=== PATIENT | female | born 1995 | race Hispanic/Latino ===

== ENCOUNTER 2020-10-04 05:06 | Emergency (ER) | payer OTHER, SELFPAY ==
--- OUTSIDE RECORDS SUMMARY | 2020-10-04 05:07 | XMS REPORT | Continuity of Care Document ---
:1995 Author Organization [facility] t Address [address] [place] [address] Dr. Vargas. [address] [place] [address] Care Team Providers Name Role Phone Jesse ARGUETA, Gerson Attending Clinician Problems This patient has no known problems. Allergies, Adverse Reactions, Alerts This patient has no known allergies or adverse reactions. Medications This patient has no known medications. Procedures This patient has no known procedures. Encounters Start End Encounter Admission Attending Care Care Encounter Source Date/Time Date/Time Type Type Clinicians Facility Department ID 2020-08-26 2020-08-26 Office Shobha Molina [facility] [[email or web address]] [id number] 1804 2024 15:04:33 15:53:57 Visit Gerson Grossman [id number] [id number] [id number] 134 [facility] Results This patient has no known results.
[2020-10-04] MEDS ORDERED: ONDANSETRON 4 MG/2 ML VIAL ONE (06:00)
[2020-10-04] MEDS ORDERED: MORPHINE 4 MG/ML SYR ONE (06:00)
[2020-10-04] MEDS ORDERED: NA CHLORIDE 0.9% 1,000 ML ONE (06:00)
[2020-10-04] MEDS ORDERED: FAMOTIDINE 20 MG/2 ML VIAL IV ONE (06:00)
[2020-10-04 06:05] LABS: Absolute Lymphocytes (CBC) 1.3 K/uL (0.7-4.9); Basophils % 0.6 % (0-1.3); Hematocrit 35.9 % (36.0-45.0); Lymphocytes % 29.4 % (15.3-44.8); MPV 8.9 fL (7.6-11.3); RBC Red Blood Cell Count 4.51 M/uL (3.86-4.86)
[2020-10-04 06:19] LABS: Urine Blood 3+ (NEG); Urine Glucose NEGATIVE (NEG); Urine Protein 2+ (NEG); Urine Specific Gravity 1.025 (1.005-1.030)
[2020-10-04 06:31] LABS: AST/SGOT 222 U/L (15-37); Albumin 3.7 g/dL (3.4-5.0); Alkaline Phosphatase 217 U/L (45-117); BUN Blood Urea Nitrogen 8 mg/dL (7-18); Bicarbonate 24 mmol/L (21-32); Bilirubin Direct 1.3 mg/dL (0-0.2); Bilirubin Total 2.1 mg/dL (0.2-1.0); Glucose Level 139 mg/dL (74-106); Lipase 142 U/L (73-393); Potassium 3.9 mmol/L (3.5-5.1); Protein, Total 8.2 g/dL (6.4-8.2); Sodium Level 140 mmol/L (136-145)
[2020-10-04 06:39] LABS: ALT/SGPT 402 U/L (12-78)
--- NOTE | 2020-10-04 07:17 | RAD REPORT ---
EXAM DESCRIPTION: CT - Abdomen Pelvis W Contrast - 10/04/2020 6:53 am CLINICAL HISTORY: Abd pain;Flank pain;Nausea / vomiting COMPARISON: No comparisons TECHNIQUE: Biphasic, helical CT imaging of the abdomen and pelvis was performed following 100 ml non -ionic IV contrast. No oral contrast administered. All CT scans are performed using dose optimization technique as appropriate and may include automated exposure control or mA/KV adjustment according to patient size. FINDINGS: No suspicious findings in the lung bases. Borderline to mild fatty infiltration present in the liver with no focal liver lesion. No portal vein abnormality. Spleen and pancreas show no suspicious findings. Small gallstones are present in the fu ndus of the gallbladder. Extrahepatic biliary tree is upper normal. Duct stones can be occult on CT i maging. Symmetric renal function is seen with no hydronephrosis or suspicious renal mass. No pyelonephritis o r acute parenchymal process. No bladder abnormalities. No adrenal abnormalities. IUD is well position ed in a normal sized uterus. Right ovary and right adnexa are unremarkable. Left ovary contains a 3 c entimeter cyst. No rupture or hemorrhage findings. No dilated bowel loops or bowel wall thickening. Appendix is normal. No free air, free fluid or infla mmatory stranding. No hernia, mass or bulky lymphadenopathy. No suspicious bony findings. IMPRESSION: Contrast enhanced CT abdomen and pelvis showing no acute or emergent finding. Baseline study shows cholelithiasis without wall thickening or edema in the gallbladder. Biliary tree is upper normal in size. Duct stones can be occult. Correlation is needed with any biliary obstructi ve clinical or laboratory findings. No acute GI or JEWEL[employer] process. Patient has a 3 centimeter left ovarian cyst without evidence for cyst ru pture or hemorrhage. Borderline to mild fatty infiltration the liver.
--- NOTE | 2020-10-04 08:59 | RAD REPORT ---
EXAM DESCRIPTION: MRI - Cholangiogram - 10/04/2020 8:43 am CLINICAL HISTORY: Right upper quadrant pain, back pain COMPARISON: CT study same day TECHNIQUE: Axial and coronal heavily T2 weighted sequences were obtained. Coronal T2 HASTE fat satur ation static and coronal multiplane reconstruction imaging generated and reviewed. Horizontal and valerie tical axis rotational views obtained using maximum intensity projection (MIP) protocol. FINDINGS: Gallstones are present in the fundus of a well filled gallbladder. Gallbladder wall does n ot appear thickened or edematous. No pericholecystic fluid evident. Common bile duct is prominent at 7 mm. Central biliary radicles are prominent but not clearly dilated . Slight motion degradation affects the central biliary radicle assessment. There is an abrupt truncation of the common bile duct in the head of the pancreas. The concave contou r would be consistent with a duct stone in the head of the pancreas. IMPRESSION: Choledocholithiasis pattern no with findings for duct stone in the head of the pancreas. Common bile duct is prominent at 7 mm but not fully outside of range of normal. Cholelithiasis.
--- NOTE | 2020-10-04 09:00 | EDPHYS ---
Physician Documentation [facility] Name: Raven Lovelace Age: 24 yrs Sex: Female : 1995 Arrival Date: 10/04/2020 Time: 05:18 Bed 20 Private MD: ED Physician Lamin Price HPI: 10/04 05:44 This 24 yrs old Female presents to ER via Ambulatory with complaints of mh7 Abdominal Pain, Back Pain. 05:44 The patient presents with abdominal pain in the right upper quadrant. Onset: The mh7 symptoms/episode began/occurred last night. The symptoms radiate to the right flank. Associated signs and symptoms: Pertinent positives: nausea and vomiting, Pertinent negatives: anorexia, blood in stools, chest pain, constipation, diarrhea, dysuria, fever, headache, hematuria, palpitations, shortness of breath, vaginal discharge, vomiting blood. The symptoms are described as sharp, waxing/waning. Modifying factors: The symptoms are alleviated by nothing, the symptoms are aggravated by nothing. Severity of pain: At its worst the pain was moderate last night, in the emergency department the pain is unchanged. 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 - Social history:: Smoking status: Patient denies any tobacco usage or history of. ROS: 05:44 Constitutional: Negative for fever, chills, and weight loss, Eyes: Negative for injury, mh7 pain, redness, and discharge, ENT: Negative for injury, pain, and discharge, Neck: Negative for injury, pain, and swelling, Cardiovascular: Negative for chest pain, palpitations, and edema, Respiratory: Negative for shortness of breath, cough, wheezing, and pleuritic chest pain, Back: Negative for injury and pain, : Negative for injury, bleeding, discharge, and swelling, MS/Extremity: Negative for injury and deformity, Skin: Negative for injury, rash, and discoloration, Neuro: Negative for headache, weakness, numbness, tingling, and seizure, Psych: Negative for depression, anxiety, suicide ideation, homicidal ideation, and hallucinations, Allergy/Immunology: Negative for hives, rash, and allergies, Endocrine: Negative for neck swelling, polydipsia, polyuria, polyphagia, and marked weight changes, Hematologic/Lymphatic: Negative for swollen nodes, abnormal bleeding, and unusual bruising. Exam: 05:44 Constitutional: This is a well developed, well nourished patient who is awake, alert, mh7 and in no acute distress. Head/Face: Normocephalic, atraumatic. Eyes: Pupils equal round and reactive to light, extra-ocular motions intact. Lids and lashes normal. Conjunctiva and sclera are non-icteric and not injected. Cornea within normal limits. Periorbital areas with no swelling, redness, or edema. Neck: Trachea midline, no thyromegaly or masses palpated, and no cervical lymphadenopathy. Supple, full range of motion without nuchal rigidity, or vertebral point tenderness. No Meningismus. Chest/axilla: Normal chest wall appearance and motion. Nontender with no deformity. No lesions are appreciated. Cardiovascular: Regular rate and rhythm with a normal S1 and S2. No gallops, murmurs, or rubs. Normal PMI, no JVD. No pulse deficits. Respiratory: Lungs have equal breath sounds bilaterally, clear to auscultation and percussion. No rales, rhonchi or wheezes noted. No increased work of breathing, no retractions or nasal flaring. 05:44 Back: No spinal tenderness. No costovertebral tenderness. Full range of motion. Skin: Warm, dry with normal turgor. Normal color with no rashes, no lesions, and no evidence of cellulitis. MS/ Extremity: Pulses equal, no cyanosis. Neurovascular intact. Full, normal range of motion. Neuro: Awake and alert, GCS 15, oriented to person, place, time, and situation. Cranial nerves II-XII grossly intact. Motor strength 5/5 in all extremities. Sensory grossly intact. Cerebellar exam normal. Normal gait. Psych: Awake, alert, with orientation to person, place and time. Behavior, mood, and affect are within normal limits. 05:44 Abdomen/GI: Inspection: abdomen appears normal, Bowel sounds: normal, in all quadrants, Palpation: moderate abdominal tenderness, in the right upper quadrant, mass, is not appreciated, rebound tenderness, is not appreciated, voluntary guarding, is not appreciated, involuntary guarding, is not appreciated, no appreciated organomegaly, Rectal exam: the exam is deferred, because of patient request, Indicators: McBurney's point is not tender, Groves's sign is negative, Rovsing's sign is negative, Obturator sign is negative, Psoas sign is negative, Liver: no appreciated palpable abnormalities, Hernia: not appreciated. Vital Signs: 05:36 BP 132 / 86; Pulse 72; Resp 18; Temp 98.2(O); Pulse Ox 99% on R/A; Weight 79.38 kg; em Height 5 ft. 5 in. (165.10 cm); Pain 3/10; 07:09 BP 113 / 44; Pulse 70; Resp 18; Temp 98; Pulse Ox 100% on R/A; mg2 10:44 BP 102 / 59; Pulse 70; Resp 16; Pulse Ox 100% on R/A; Pain 0/10; ss 05:36 Body Mass Index 29.12 (79.38 kg, 165.10 cm) em MDM: 07:16 Patient medically screened. ciro 08:10 Differential diagnosis: cholecystitis, Cholelithiasis, gastritis, non-specific abd ciro pain, pancreatitis, Peptic Ulcer Disease, urinary tract infection. Data reviewed: vital signs, nurses notes, lab test result(s), radiologic studies, CT scan, MRI. 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 Test interpretation: by ED physician or midlevel provider:. Counseling: I had a detailed discussion with the patient and/or guardian regarding: the historical points, exam findings, and any diagnostic results supporting the discharge/admit diagnosis, lab results, radiology results. 03 05:38 Order name: Basic Metabolic Panel [facility] 10/04 05:38 Order name: CBC with Diff [facility] 10/04 05:38 Order name: Hepatic Function [facility] 10/04 05:38 Order name: Lipase [facility] 10/04 05:50 Order name: Urine Dipstick--Ancillary (enter results) tt3 10/04 05:50 Order name: Urine --Ancillary (enter results) tt3 10/04 06:09 Order name: CBC with Automated Diff; Complete Time: 06:24 EDMS 10/04 06:20 Order name: Urine --Ancillary; Complete Time: 06:24 EDMS 10/04 06:20 Order name: Urine Dipstick-Ancillary; Complete Time: 06:24 EDMS 10/04 06:39 Order name: Basic Metabolic Panel; Complete Time: 07:06 EDMS 10/04 06:39 Order name: Liver (Hepatic) Function; Complete Time: 07:06 EDMS 10/04 06:39 Order name: Lipase; Complete Time: 07:06 EDMS 10/04 05:38 Order name: IV Saline Lock; Complete Time: 05:52 7 10/04 05:38 Order name: Labs collected and sent; Complete Time: 05:52 7 10/04 05:38 Order name: Urine Dipstick-Ancillary (obtain specimen); Complete Time: 05:49 7 10/04 05:38 Order name: Urine Test (obtain specimen); Complete Time: 05:49 7 10/04 06:25 Order name: CT Abd/Pelvis - IV Contrast Only; Complete Time: 07:18 7 10/04 07:25 Order name: Cholangiogram; Complete Time: 09:04 EDMS Administered Medications: 05:50 Drug: Zofran (Ondansetron) 4 mg Route: IVP; Site: right forearm; mg2 07:01 Follow up: Response: No adverse reaction mg2 05:50 Drug: Pepcid 20 mg Route: IVP; Site: right forearm; mg2 07:01 Follow up: Response: No adverse reaction mg2 05:51 Drug: NS 0.9% 1000 ml Route: IV; Rate: 1000 ml; Site: right forearm; mg2 07:01 Follow up: Response: No adverse reaction; IV Status: Completed infusion; IV Intake: mg2 1000ml 07:09 Not Given (Patient Refused): morphine 4 mg IVP once; RASS on ADMIN: Combtv4, Very mg2 Agttd3, Agttd2, Rstlss1, AlertClm0, Drwsy-1, Lt Sdtn-2, Mod Sdtn-3, Dp Sdtn-4, UnArsble-5 Disposition: 10/04/20 09:00 Transfer ordered to [facility]. Diagnosis are Cholecystitis, Cholelithiasis - CHOLEDOCOLITHIASIS, Abdominal tenderness. - Reason for transfer: Higher level of care. - Accepting physician is TO [facility]. - Condition is Stable. - Problem is new. - Symptoms have improved. Signatures: Dispatcher [employer] EDUT Lamin Price MD MD cha Munoz, Edgar, RN RN Kitty Andino RN RN Chilango Griggs RN RN [facility] [place] [place] Xavier Mayer MD MD mh7 Corrections: (The following items were deleted from the chart) 09:41 09:40 CORONAVIRUS ordered. [facility] 11:19 09:00 10/04/2020 09:00 Transfer ordered to [facility]. hb Diagnosis is Cholecystitis; Cholelithiasis - CHOLEDOCOLITHIASIS; Abdominal tenderness. Reason for transfer: Higher level of care. Accepting physician is TO [facility]. Condition is Stable. Problem is new. Symptoms have improved. ciro
--- NOTE | 2020-10-04 09:00 | ER ---
Nurse's Notes [facility] Name: Raven Lovelace Age: 24 yrs Sex: Female : 1995 Arrival Date: 10/04/2020 Time: 05:18 Bed 20 Private MD: Diagnosis: Cholecystitis;Cholelithiasis-CHOLEDOCOLITHIASIS;Abdominal tenderness Presentation: 10/04 05:36 Chief complaint: Patient states: right flank/abd pain that radiates into back has been em there since Nov. but got worse 1130 last night, reports N/V, denies diarrhea or fever. Coronavirus screen: Client denies travel out of the [place] in the last 14 days. Ebola Screen: Patient negative for fever greater than or equal to 101.5 degrees Fahrenheit, and additional compatible Ebola Virus Disease symptoms Patient denies exposure to infectious person. Patient denies travel to an Ebola-affected area in the 21 days before illness onset. No symptoms or risks identified at this time. Initial Sepsis Screen: Does the patient meet any 2 criteria? No. Patient's initial sepsis screen is negative. Does the patient have a suspected source of infection? No. Patient's initial sepsis screen is negative. Risk Assessment: Do you want to hurt yourself or someone else? Patient reports no desire to harm self or others. Onset of symptoms was October 03, 2020. 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 - Social history:: Smoking status: Patient denies any tobacco usage or history of. Screenin:52 Abuse screen: Denies threats or abuse. Denies injuries from another. Nutritional mg2 screening: No deficits noted. Tuberculosis screening: No symptoms or risk factors identified. Fall Risk IV access (20 points). Assessment: 05:40 General: Appears in no apparent distress. comfortable, Behavior is calm, cooperative, rr5 appropriate for age. 05:40 Pain: Complains of pain in abdomen and right upper quadrant Pain currently is 3 out of rr5 10 on a pain scale. Quality of pain is described as aching, Pain began gradually, Is intermittent. Neuro: Level of Consciousness is awake, alert, obeys commands, Oriented to person, place, time. Cardiovascular: Capillary refill < 3 seconds Patient's skin is warm and dry. Respiratory: Airway is patent Respiratory effort is even, unlabored, Respiratory pattern is regular, symmetrical. GI: Abdomen is round non-distended, Abd is soft and non tender Reports upper abdominal pain. : No signs and/or symptoms were reported regarding the genitourinary system. EENT: No signs and/or symptoms were reported regarding the EENT system. Derm: Skin temperature is warm. Musculoskeletal: Circulation, motion, and sensation intact. Capillary refill < 3 seconds. 07:30 General: Appears in no apparent distress. comfortable, Behavior is calm, cooperative. ss Respiratory: Airway is patent Respiratory effort is even, unlabored, Respiratory pattern is regular, symmetrical. GI: Abdomen is non-distended, Patient currently denies diarrhea, nausea, vomiting. : No signs and/or symptoms were reported regarding the genitourinary system. Musculoskeletal: Circulation, motion, and sensation intact. Range of motion: intact in all extremities, Swelling absent. 07:45 Reassessment: Pt denies pain at this time. To MRI VIA wheelchair for MRCP. ss 08:26 Reassessment: Back from MRI. ss 10:00 Reassessment: Patient appears in no apparent distress at this time. Patient and/or ss family updated on plan of care and expected duration. Pain level reassessed. Patient is alert, oriented x 3, equal unlabored respirations, skin warm/dry/pink. Patient denies pain at this time. 10:30 Reassessment: Report given to RENETTA Foster at [facility]. Vital Signs: 05:36 BP 132 / 86; Pulse 72; Resp 18; Temp 98.2(O); Pulse Ox 99% on R/A; Weight 79.38 kg; em Height 5 ft. 5 in. (165.10 cm); Pain 3/10; 07:09 BP 113 / 44; Pulse 70; Resp 18; Temp 98; Pulse Ox 100% on R/A; mg2 10:44 BP 102 / 59; Pulse 70; Resp 16; Pulse Ox 100% on R/A; Pain 0/10; ss 05:36 Body Mass Index 29.12 (79.38 kg, 165.10 cm) em ED Course: 05:18 Patient arrived in ED. am4 05:29 Xavier Mayer MD is Attending Physician. mh7 05:33 Gerardo Thomas, RN is Primary Nurse. rr5 05:38 Triage completed. em 05:38 Arm band placed on. em 05:50 Inserted saline lock: 20 gauge in right forearm, using aseptic technique. Blood mg2 collected. by RENETTA Carrillo. 05:51 No provider procedures requiring assistance completed. mg2 05:52 Patient has correct armband on for positive identification. mg2 07:08 CT Abd/Pelvis - IV Contrast Only In Process Unspecified. EDMS 07:16 Attending Physician role handed off by Xavier Mayer MD ciro 07:16 Lamin Price MD is Attending Physician. ciro 07:58 Cholangiogram In Process Unspecified. EDMS Administered Medications: 05:50 Drug: Zofran (Ondansetron) 4 mg Route: IVP; Site: right forearm; mg2 07:01 Follow up: Response: No adverse reaction mg2 05:50 Drug: Pepcid 20 mg Route: IVP; Site: right forearm; mg2 07:01 Follow up: Response: No adverse reaction mg2 05:51 Drug: NS 0.9% 1000 ml Route: IV; Rate: 1000 ml; Site: right forearm; mg2 07:01 Follow up: Response: No adverse reaction; IV Status: Completed infusion; IV Intake: mg2 1000ml 07:09 Not Given (Patient Refused): morphine 4 mg IVP once; RASS on ADMIN: Combtv4, Very mg2 Agttd3, Agttd2, Rstlss1, AlertClm0, Drwsy-1, Lt Sdtn-2, Mod Sdtn-3, Dp Sdtn-4, UnArsble-5 Intake: 07:01 IV: 1000ml; Total: 1000ml. mg2 Outcome: 09:00 ER care complete, transfer ordered by . ciro 11:19 Patient left the ED. Signatures: Dispatcher [employer] EDMS Lamin Price MD MD cha Munoz, Edgar, RN RENETTA Dipika Scanlon RN RN Kitty Gant RN RN Chilango Griggs RN RN mg2 Gerardo Thomas, RN RN rr5 Xavier Maeyr MD MD mh7 Raven Lee [facility]
[2020-10-04] MEDS ORDERED: PIPER/TAZO/NS 3.375gm 3.375 GM/100 ML BAG ONE (11:25)
[2020-10-04 11:48] VITALS: TEMP 98; O2SAT 100
[2020-10-04 11:51] VITALS: BP 102/59
== END 2020-10-04 11:19 | disposition short-term general hospital (02) ==
LOC: ER 05:06
DX: K80.40 Calculus of bile duct with cholecystitis, unspecified, without obstruction (principal); Z20.822 Contact with and (suspected) exposure to COVID-19
CPT/HCPCS: 96361; 85025; 80048; 36415; 81025; 80076; 81003; 83690; 74177; 74181; 96375; 96374; 99284; U0003; Q9967; J2543; J7030; J2405